=== PATIENT | female | born 1985 | race Caucasian/White ===

== ENCOUNTER 2024-04-18 03:07 | Emergency (ER) | payer OTHER, MEDICAID ==
[~2024-04-18] VITALS: Ht 167.6 cm; Wt 68.0 kg
[2024-04-18 03:09] VITALS: O2SAT 98
[2024-04-18] MEDS: SODIUM CHLORIDE 0.9% 1,000 ML IV ONE (03:36)
[2024-04-18 03:39] LABS: BASOPHILS % 0.4 % (0.0-2.0); EOSINOPHILS % 1.8 % (0.0-5.0); HEMATOCRIT. 42.9 % (36.0-48.0); HEMOGLOBIN. 14.7 g/dL (12.0-16.0); LYMPHOCYTES % 27.3 % (20.0-50.0); MEAN CORPUSCULAR HEMOGLOBIN 30.3 pg (28.0-32.0); MEAN CORPUSCULAR HGB CONC 34.3 g/dL (31.0-37.0); MEAN CORPUSCULAR VOLUME 88.3 fL (81.0-99.0); MEAN PLATELET VOLUME 8.2 fl (7.4-10.4); MONOCYTES % 5.4 % (2.0-8.0); NEUTROPHILS % 65.1 % (40.0-76.0); PLATELET 325 x1000/uL (130-400); RED BLOOD CELL COUNT 4.86 mill/uL (4.2-5.4); WHITE BLOOD COUNT 9.7 x1000/uL (4.5-11.0)
[2024-04-18 03:47] LABS: CHLORIDE 104 mEq/L (98-107); SODIUM 140 mEq/L (136-145)
[2024-04-18 03:48] LABS: CALCIUM 9.7 mg/dL (8.7-10.4); CARBON DIOXIDE 28 mEq/L (21-32)
[2024-04-18 03:53] LABS: CREATININE 0.8 mg/dL (0.6-1.0); GLUCOSE 124 mg/dL (70-105); UREA NITROGEN BLOOD 10 mg/dL (9-23)
[2024-04-18 03:54] LABS: HCG SCREEN NEGATIVE
[2024-04-18 03:55] LABS: TROPONIN I HIGH SENSITIVITY < 4 ng/L (3.0-34)
[2024-04-18] MEDS ORDERED: MAGNESIUM/ALUMINUM HYDROXIDE/SIMETHICONE 30ML UDC PO PRN (06:15)
[2024-04-18] MEDS ORDERED: ACETAMINOPHEN 325MG TABLET PO PRN ×2 (06:15)
[2024-04-18] MEDS ORDERED: ZOLPIDEM TARTRATE 5MG TABLET PO PRN (06:15)
[2024-04-18] MEDS ORDERED: ONDANSETRON HCL 4MG/2ML INJ IV PRN (06:15)
[2024-04-18] MEDS ORDERED: NITROGLYCERIN 0.4MG TABLET SL SL PRN (06:15)
[2024-04-18] MEDS ORDERED: CLONIDINE 0.1MG TABLET PO PRN (06:15)
[2024-04-18] MEDS ORDERED: KETOROLAC 15MG/ML VIAL IV PRN (06:15)
[2024-04-18] MEDS ORDERED: IPRATROPIUM/ALBUTEROL 0.5-3(2.5)MG/3ML NEB NEB PRN (06:15)
[2024-04-18] MEDS ORDERED: NA PHOS,M-B/NA PHOS,DI-BA ENEMA 118ML PR PRN (06:15)
[2024-04-18] MEDS ORDERED: GUAIFENESIN 200MG/10ML SUGAR FREE UDC PO PRN (06:15)
[2024-04-18] MEDS ORDERED: DOCUSATE SODIUM 100MG CAPSULE PO PRN (06:15)
[2024-04-18] MEDS: POTASSIUM CHLORIDE 20MEQ/PACKET PO NR (06:19)
[2024-04-18 08:06] LABS: TRIGLYCERIDE 78 mg/dL (0-150); TROPONIN I HIGH SENSITIVITY < 4 ng/L (3.0-34)
[2024-04-18 08:07] LABS: LDL CHOLESTEROL 90 mg/dL (5-100)
[2024-04-18 08:08] LABS: CHOLESTEROL 148 mg/dL (<200); HDL CHOLESTEROL 49 mg/dL (>65)
[2024-04-18 08:10] LABS: THYROID STIMULATING HORMONE 3.19 uIU/mL (0.55-4.78); VITAMIN B12 SERUM 354 pg/mL (211-911)
[2024-04-18 08:17] LABS: ETHANOL BLOOD < 10 mg/dL (<10)
[2024-04-18 08:20] VITALS: BP 128/61; PULSE 75; RESP 16; TEMP 98.4
[2024-04-18] MEDS ORDERED: ENOXAPARIN 40MG/0.4ML SYR SUBCUT SCH (09:00)
[2024-04-18] MEDS ORDERED: FAMOTIDINE 20MG TABLET PO SCH (09:00)
[2024-04-18] MEDS ORDERED: POTASSIUM CHLORIDE 20MEQ TABLET SR PO NR (10:00)
== END 2024-04-18 08:37 | disposition short-term general hospital (02) ==
LOC: ER 03:07
DX: R55 Syncope and collapse (principal); I49.9 Cardiac arrhythmia, unspecified; I10 Essential (primary) hypertension; Z20.822 Contact with and (suspected) exposure to COVID-19
CPT/HCPCS: 80061; 80048; 80320; 82607; 83036; 84703; 84439; 84443; 85025; 85379; 84484; 36415; 84145; 71045; 70450; 99285; 87426; J7030; Z7610 ×2; G0480